=== PATIENT | female | born 2000 | race African-American/Black ===

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

== ENCOUNTER 2020-02-02 17:30 | Emergency (ER) | payer SELFPAY ==
[~2020-02-02] VITALS: Ht 160 cm; Wt 73.0 kg
[2020-02-02 17:35] VITALS: BP 127/76
== END 2020-02-02 21:30 | disposition left against medical advice (07) ==
LOC: ER 17:30
DX: R10.9 Unspecified abdominal pain (principal); Z53.21 Procedure and treatment not carried out due to patient leaving prior to being seen by health care provider
CPT/HCPCS: 93005